=== PATIENT | male | born 1995 | race Caucasian/White ===

== ENCOUNTER 2018-06-24 14:14 | Emergency (ER) | payer MEDICAID ==
[~2018-06-24] VITALS: Ht 170.2 cm; Wt 61.7 kg
[2018-06-24 16:40] VITALS: BP 125/78
== END 2018-06-24 17:40 | disposition home or self-care (01) ==
LOC: ED 14:14
DX: L02.413 Cutaneous abscess of right upper limb (principal); L02.414 Cutaneous abscess of left upper limb; J45.909 Unspecified asthma, uncomplicated; F11.90 Opioid use, unspecified, uncomplicated
CPT/HCPCS: J2001

== ENCOUNTER 2018-06-28 09:48 | Emergency (ER) | payer MEDICAID ==
[~2018-06-28] VITALS: Ht 170.2 cm; Wt 62.6 kg
[2018-06-28 10:06] VITALS: Ht 170.2 cm; Wt 62.6 kg
[2018-06-28 10:41] VITALS: BP 133/65
== END 2018-06-28 10:41 | disposition home or self-care (01) ==
LOC: ED 09:48
DX: L02.413 Cutaneous abscess of right upper limb (principal); J45.909 Unspecified asthma, uncomplicated